=== PATIENT | female | born 1945 | race Caucasian/White ===

== ENCOUNTER → 2016-11-12 | Outpatient (REF) | payer MEDICARE, BC ==
[~2016-11-12] MED LIST: ASPI81TA85 PO; ATOR1TAB21 PO; CALTTAB5 PO; ESTR1TAB PO; FENO160T10 PO; GLIM2TA PO; JANU100T PO; LANTINJ4 SC; LISI20TA3 PO; METO25TAB PO; MULTTAB PO; OMEP40CA2 PO; VITA100037 PO; plaquenil PO
[2016-11-12 14:01] LABS: PERCENT SATURATION 14.6 % (13.2-37.4)
== END ==
LOC: M LAB REF 13:20
PROVIDERS: ATTEND Internal Medicine Nephrology
DX: D50.9 Iron deficiency anemia, unspecified (principal)

== ENCOUNTER 2017-05-14 12:19 | Emergency (ER) | payer MEDICARE, BC ==
[~2017-05-14] VITALS: Ht 154.9 cm; Wt 64.1 kg
[~2017-05-14 12:19] MED LIST changes: -VITA100037 PO; +VITA100067 PO
[2017-05-14] MEDS ORDERED: MORPHINE 2 MG/ML 1ML SYRINGE IV ONE (12:45)
[2017-05-14] MEDS ORDERED: PROMETHAZINE INJ 25 MG/ML VIAL (J2550) IV ONE (12:45)
[2017-05-14 13:03] LABS: BASO % 0.2 % (0.0-1.0); IMMATURE GRANULOCYTE % 0.5 % (0-0); LYMPH # 1.3 10^3/uL (1.5-4.5); LYMPH % 10.2 % (24.0-44.0); MEAN CORPUSCULAR HEMOGLOBIN 18.1 pg (27.0-33.0); MEAN CORPUSCULAR HGB CONC 30.5 g/dl (32.0-36.5); MONO # 0.4 10^3/uL (0.0-0.8); MONO % 3.1 % (0.0-5.0); NEUTROPHILS # 11.2 10^3/uL (1.8-7.7); PLATELET COUNT, AUTOMATED 280 10^3/uL (150-450); RED CELL DISTRIBUTION WIDTH 19.9 % (11.5-14.5); WHITE BLOOD COUNT 13.1 10^3/uL (4.0-10.0)
[2017-05-14 13:06] LABS: ADD MORPHOLOGY? NO; MEAN CORPUSCULAR VOLUME 59.4 fl (80.0-96.0); POSITIVE MORPH POS FLAG
[2017-05-14 13:17] LABS: CALCIUM LEVEL 9.5 MG/DL (8.8-10.2); CREATININE FOR GFR 1.1 MG/DL (0.55-1.02); GLOMERULAR FILTRATION RATE 52.3 (>39); POTASSIUM SERUM 4.2 MEQ/L (3.5-5.1)
[2017-05-14] MEDS ORDERED: ONGL1TAB9 PO (13:35)
[2017-05-14] MEDS ORDERED: METH2.5TA (13:35)
[2017-05-14] MEDS ORDERED: PRED10TA2 (13:35)
[2017-05-14] MEDS ORDERED: FURO20TA2 PO (13:35)
--- NOTE | 2017-05-14 13:35 | REP ---
CT BRAIN WITHOUT CONTRAST: CT brain performed without IV contrast and compared to prior study 06/04/2007. There is mild atrophy. There is no midline shift or mass effect. There are mild periventricular small vessel ischemic changes in the white matter which appear fairly similar to the prior study. There is no acute hemorrhage. There is no extra-axial fluid collection. No skull fracture is seen. Paranasal sinuses are clear. There are mild atherosclerotic calcifications in the carotid siphons. IMPRESSION: Mild atrophy and chronic periventricular small vessel ischemic changes. No acute intracranial hemorrhage or other acute finding. Signed by Cameron Cunningham MD 05/14/2017 02:39 P
[2017-05-14] MEDS ORDERED: BASA100I SC (14:19)
[2017-05-14] MEDS ORDERED: ENAL20TA PO (14:19)
[2017-05-14 14:48] VITALS: BP 137/78
--- NOTE | 2017-05-15 07:20 | ECGEPIP ---
Stationary ECG Study [facility] - ED Test Date: 2017-05-14 Pat Name: MATHIEU NORIEGA Department: Room: - Gender: F Family Therapist: AF : 1945 Requested By: CHLOE Ku Order Number: [id number] Reading MD: Betty Tadeo Measurements Intervals [place] Rate: 79 P: 7 LA: 180 QRS: -12 QRSD: 97 T: -10 QT: 384 QTc: 441 Interpretive Statements SINUS RHYTHM MODERATE VOLTAGE CRITERIA FOR LVH, CONSIDER NORMAL VARIANT NSTTW ABNORMALITY NO PRIOR FOR COMPARISON Electronically Signed On 05-15-2017 7:20:33 EDT by Betty Tadeo
== END 2017-05-14 15:10 | disposition home or self-care (01) ==
LOC: M ED 12:19
DX: I10 Essential (primary) hypertension (principal); E11.9 Type 2 diabetes mellitus without complications; M79.7 Fibromyalgia; M19.90 Unspecified osteoarthritis, unspecified site; K21.9 Gastro-esophageal reflux disease without esophagitis

== ENCOUNTER 2017-11-19 20:10 | Emergency (ER) | payer MEDICARE, BC ==
[2017-11-19] MEDS: diazePAM 5 MG TAB PO (21:48)
[2017-11-19] MEDS: NORCO, ANEXSIA 5/325MG TABLET (HYDROcodone/ACETAMINOPHEN) PO (22:56)
[2017-11-20] MEDS: NORCO 5/325MG TABLET (BULK FOR ED) PO
[2017-11-20] MEDS: diazePAM 5 MG TAB PO
== END 2017-11-20 00:02 | disposition home or self-care (01) ==
LOC: M ED 11-20 00:02
DX: M54.17 Radiculopathy, lumbosacral region (principal); M54.41 Lumbago with sciatica, right side; E10.9 Type 1 diabetes mellitus without complications; M79.7 Fibromyalgia; Z79.82 Long term (current) use of aspirin; Z79.4 Long term (current) use of insulin; Z79.899 Other long term (current) drug therapy; Z88.0 Allergy status to penicillin; Z88.5 Allergy status to narcotic agent
CPT/HCPCS: 93971

== ENCOUNTER → 2019-04-15 | Outpatient (CLI) | payer MEDICARE, BC ==
[~2019-04-15] MED LIST changes: +BASA100I SC; +ENAL20TA PO; +FURO20TA2 PO; -GLIM2TA PO; +GLIM2TAB29 PO; +LISI20TA20 PO; -LISI20TA3 PO; +METH2.5T48; +METO1TAB63 PO; -METO25TAB PO; +NORC1TAB7 PO; +ONGL1TAB9 PO; +PRED10TA2; +VALI5TAB PO
[2019-04-15 12:39] LABS: HEMATOCRIT 36.8 % (36.0-47.0); HEMOGLOBIN 11.4 g/dl (12.0-15.5); MEAN CORPUSCULAR VOLUME 64.4 fl (80.0-96.0); PLATELET COUNT, AUTOMATED 271 10^3/uL (150-450); RED BLOOD COUNT 5.71 10^6/uL (4.00-5.40); WHITE BLOOD COUNT 5.9 10^3/uL (4.0-10.0)
[2019-04-15 13:10] LABS: ALBUMIN 4.1 GM/DL (3.2-5.2); ALT/SGPT 13 U/L (12-78); BILIRUBIN,TOTAL 0.3 MG/DL (0.2-1.0); BLOOD UREA NITROGEN 16 MG/DL (7-18); CALCIUM LEVEL 9.6 MG/DL (8.8-10.2); CARBON DIOXIDE LEVEL 30 MEQ/L (21-32); CHLORIDE LEVEL 104 MEQ/L (98-107); CREATININE FOR GFR 0.86 MG/DL (0.55-1.30); GLOMERULAR FILTRATION RATE > 60.0 (>39); GLUCOSE, FASTING 74 MG/DL (70-100); SODIUM LEVEL 140 MEQ/L (136-145); TOTAL PROTEIN 7.3 GM/DL (6.4-8.2)
[2019-04-15 13:40] LABS: ERYTHROCYTE SEDIMENTATION RATE 18 mm/hr (0-30)
== END ==
LOC: M LAB 11:36
PROVIDERS: ATTEND Nurse Practitioner
DX: R10.84 Generalized abdominal pain (principal); R19.7 Diarrhea, unspecified; R19.5 Other fecal abnormalities; M25.552 Pain in left hip

== ENCOUNTER 2019-06-23 12:19 | Day surgery (SDC) | payer MEDICARE, BC ==
[~2019-06-23] VITALS: Ht 154.9 cm; Wt 64.0 kg
[~2019-06-23 12:19] MED LIST changes: +AMLO5TAB6 PO; +FAMO20TA PO; +METO25TA4 PO; +MULTCAP PO; +NS 1,000 ML IV ONE; -OMEP40CA2 PO; +OMEP40CA97 PO; +POTA10TA17 PO; +SULF50TA PO; +VITA200010 PO
[2019-06-23] MEDS ORDERED: PROPOFOL 200 MG/20 ML VIAL As Ordered ONE (12:27)
[2019-06-23] MEDS ORDERED: LIDOCAINE 2% INJ 100 MG/5 ML SDV (FOR ANES.) As Ordered ONE (12:27)
--- NOTE | 2019-06-23 13:27 | ROOR ---
Patient Name: Haleigh Kelly Procedure Date: 06/23/2019 12:56 PM Date of : 1945 Age: 73 Room: [facility] Gender: Female Note Status: Finalized Procedure: Colonoscopy Indications: Generalized abdominal pain Providers: Tao Ramirez Jr, MD Referring MD: ERNIE SANDOVAL Requesting Provider: Medicines: Propofol per Anesthesia Complications: No immediate complications. Procedure: Pre-Anesthesia Assessment: - Prior to the procedure, a History and Physical was performed, and patient medications and allergies were reviewed. The patient is competent. The risks and benefits of the procedure and the sedation options and risks were discussed with the patient. All questions were answered and informed consent was obtained. Patient identification and proposed procedure were verified by the physician and the nurse in the pre-procedure area and in the procedure room. Mental Status Examination: alert and oriented. Airway Examination: normal oropharyngeal airway and neck mobility. Respiratory Examination: clear to auscultation. CV Examination: normal. ASA Grade Assessment: II - A patient with mild systemic disease. After reviewing the risks and benefits, the patient was deemed in satisfactory condition to undergo the procedure. The anesthesia plan was to use moderate sedation / analgesia (conscious sedation). Immediately prior to administration of medications, the patient was re-assessed for adequacy to receive sedatives. The heart rate, respiratory rate, oxygen saturations, blood pressure, adequacy of pulmonary ventilation, and response to care were monitored throughout the procedure. The physical status of the patient was re-assessed after the procedure. The Colonoscope was introduced through the anus and advanced to the cecum, identified by appendiceal orifice and ileocecal valve. The colonoscopy was performed without difficulty. The patient tolerated the procedure well. The quality of the bowel preparation was adequate. Findings: The rectum, recto-sigmoid colon, descending colon, cecum, appendiceal orifice and ileocecal valve appeared normal. Many small and large-mouthed diverticula were found in the sigmoid colon. Two polyps were found in the transverse colon and ascending colon. The polyps were small in size. These polyps were removed with a hot snare. Resection and retrieval were complete. A medium polyp was found in the sigmoid colon. The polyp was sessile. The polyp was removed with a hot snare. Resection and retrieval were complete. To close a defect after polypectomy, two hemostatic clips were successfully placed. There was no bleeding at the end of the procedure. Impression: - The rectum, recto-sigmoid colon, descending colon, cecum, appendiceal orifice and ileocecal valve are normal. - Diverticulosis in the sigmoid colon. - Two small polyps in the transverse colon and in the ascending colon, removed with a hot snare. Resected and retrieved. - One medium polyp in the sigmoid colon, removed with a hot snare. Resected and retrieved. Clips were placed. Recommendation: - Discharge patient to home (ambulatory). - Repeat colonoscopy date to be determined after pending pathology results are reviewed for surveillance of multiple polyps. Tao Ramirez MD Tao Raimrez Jr, MD 06/23/2019 1:27:13 PM Electronically signed by Tao Ramirez Jr, MD Number of Addenda: 0 Note Initiated On: 06/23/2019 12:56 PM Estimated Blood Loss: Estimated blood loss: none.
[2019-06-23 14:15] VITALS: BP 152/63
== END 2019-06-23 14:20 | disposition home or self-care (01) ==
LOC: M OPP 12:19
PROVIDERS: ATTEND Surgery
DX: D12.3 Benign neoplasm of transverse colon (principal); D12.2 Benign neoplasm of ascending colon; D12.5 Benign neoplasm of sigmoid colon; K57.30 Diverticulosis of large intestine without perforation or abscess without bleeding; R10.84 Generalized abdominal pain; K59.00 Constipation, unspecified; I10 Essential (primary) hypertension; E78.00 Pure hypercholesterolemia, unspecified; E10.9 Type 1 diabetes mellitus without complications; K58.9 Irritable bowel syndrome, unspecified; K21.9 Gastro-esophageal reflux disease without esophagitis; D56.3 Thalassemia minor; M19.90 Unspecified osteoarthritis, unspecified site; M79.7 Fibromyalgia; G47.30 Sleep apnea, unspecified; Z88.0 Allergy status to penicillin; Z88.5 Allergy status to narcotic agent; Z79.899 Other long term (current) drug therapy; Z79.82 Long term (current) use of aspirin; Z79.890 Hormone replacement therapy

== ENCOUNTER 2020-05-24 16:29 | Emergency (ER) | payer MEDICARE, BC ==
[~2020-05-24] VITALS: Ht 154.9 cm; Wt 61.9 kg
[~2020-05-24 16:29] MED LIST changes: +AMLO1TAB24 PO; -AMLO5TAB6 PO; -ASPI81TA85 PO; +ASPI81TA86 PO; -ENAL20TA PO; +ENAL20TA11 PO; -NS 1,000 ML IV ONE; +SULF500T41 PO; -SULF50TA PO
[2020-05-24] MEDS ORDERED: MIRT1TAB16 (16:43)
[2020-05-24] MEDS ORDERED: amLODIPine 5 MG TAB PO ONE (18:00)
[2020-05-24] MEDS ORDERED: ENALAPRIL MALEATE 10 MG TAB PO ONE (18:00)
[2020-05-24] MEDS ORDERED: METOPROLOL TART 25 MG TABLET PO ONE (18:00)
[2020-05-24 18:30] LABS: BASO % 0.9 % (0.0-1.0); EOS % 0.2 % (0.0-3.0); HEMOGLOBIN 10.1 g/dl (12.0-15.5); LYMPH # 0.9 10^3/uL (1.5-5.0); LYMPH % 18.3 % (24.0-44.0); MEAN CORPUSCULAR HEMOGLOBIN 19.3 pg (27.0-33.0); MEAN CORPUSCULAR HGB CONC 29.7 g/dl (32.0-36.5); MONO # 0.2 10^3/uL (0.0-0.8); NEUTROPHILS # 3.5 10^3/uL (1.5-8.5); NEUTROPHILS % 75.2 % (36.0-66.0); PLATELET COUNT, AUTOMATED 217 10^3/uL (150-450); RED BLOOD COUNT 5.23 10^6/uL (4.00-5.40); WHITE BLOOD COUNT 4.6 10^3/uL (4.0-10.0)
[2020-05-24] MEDS ORDERED: ACETAMINOPHEN 325 MG TAB PO ONE (18:45)
[2020-05-24 18:50] LABS: ALBUMIN 4.3 GM/DL (3.2-5.2); BILIRUBIN,DIRECT 0.2 MG/DL (0.0-0.2); BILIRUBIN,TOTAL 0.5 MG/DL (0.2-1.0); TOTAL PROTEIN 7.1 GM/DL (6.4-8.2)
[2020-05-24 19:00] VITALS: BP 195/103
--- NOTE | 2020-05-25 10:04 | ECGEPIP ---
[facility] - ED Test Date: 2020-05-24 Pat Name: MATHIEU NORIEGA Department: Room: - Gender: Female Lead Customer Service Representative: maria r : 1945 Requested By: Betty Tadeo Order Number: [id number] Reading MD: Betty Tadeo Measurements Intervals [place] Rate: 82 P: 12 RI: 177 QRS: -8 QRSD: 86 T: -1 QT: 380 QTc: 445 Interpretive Statements SINUS RHYTHM NSTTW abnormalities SIMILAR 05/14/17 Electronically Signed on 05-25-2020 10:04:03 EST by Betty Tadeo
== END 2020-05-24 19:12 | disposition home or self-care (01) ==
LOC: M ED 16:29
DX: I10 Essential (primary) hypertension (principal); E11.9 Type 2 diabetes mellitus without complications; F33.9 Major depressive disorder, recurrent, unspecified; F41.9 Anxiety disorder, unspecified; E78.9 Disorder of lipoprotein metabolism, unspecified; G47.30 Sleep apnea, unspecified; Z88.0 Allergy status to penicillin; Z88.5 Allergy status to narcotic agent

== ENCOUNTER → 2020-07-28 | Outpatient (CLI) | payer MEDICARE, BC ==
[~2020-07-28] MED LIST changes: +MIRT1TAB16
== END ==
LOC: M LABSMTC 10:27
PROVIDERS: ATTEND Physician Assistant Medical
DX: Z20.822 Contact with and (suspected) exposure to COVID-19 (principal)

== ENCOUNTER → 2021-04-02 | Outpatient (CLI) | payer MEDICARE, BC ==
[~2021-04-02] MED LIST changes: +OMEP40CA4 PO; -OMEP40CA97 PO
--- NOTE | 2021-04-02 15:34 | REP ---
INDICATION: SPRAIN. COMPARISON: None. TECHNIQUE: Six views in total FINDINGS: There is no evidence of an acute fracture or destructive osseous lesion. Degenerative changes are seen involving the spine. IMPRESSION: No acute abnormality noted. <Electronically signed by Sunny Griffin > 04/02/21 2217
== END ==
LOC: M WUC 14:46
PROVIDERS: ATTEND Physician Assistant
DX: S23.41XA Sprain of ribs, initial encounter (principal); W18.30XA Fall on same level, unspecified, initial encounter; Y92.009 Unspecified place in unspecified non-institutional (private) residence as the place of occurrence of the external cause

== ENCOUNTER → 2022-07-22 | Outpatient (CLI) | payer MEDICARE, BC ==
[~2022-07-22] MED LIST changes: -LISI20TA20 PO; +LISI20TA37 PO; +POTA-150 PO; -POTA10TA17 PO
== END ==
LOC: M WHC 09:41
PROVIDERS: ATTEND Nurse Practitioner Family
DX: N18.31 Chronic kidney disease, stage 3a (principal)

== ENCOUNTER 2023-03-16 07:50 | Day surgery (SDC) | payer MEDICARE, BC ==
[~2023-03-16] VITALS: Ht 154.9 cm; Wt 59.4 kg
[~2023-03-16 07:50] MED LIST changes: +ACETYLCHOLINE OPHTH SOLN 1% 2ML (MIOCHOL-E) As Ordered ONE; +AIRB1CHW PO; +BAYE81TA10 PO; +CHOL4POW26 PO; +CYCLOPENTOLATE 1% OPHTH SOLN 2ML BTL OD SCH; +ENAL1TAB52 PO; -ENAL20TA11 PO; +FLUC200T4 PO; +FLURBIPROFEN 0.03% OPHTH SOLN 2.5 ML OD SCH; +LEFL10TA12 PO; +LEXA1TAB PO; +LIDOCAINE 1% MDV 50ML VIAL As Ordered ONE; +LIDOCAINE 1% SDV 5ML VIAL As Ordered ONE; +LISI10TA24 PO; +LR 1,000 ML IV SCH; +MEMA10TA19 PO; +METO1TAB7 PO; +PHENYLEPHRINE 2.5% OPHTH SOL 2ML OD SCH; +TETRACAINE 0.5% OPHTH SOLN 4ML OD SCH; +THERTAB52 PO
[2023-03-16] MEDS ORDERED: PROPARACAINE 0.5% OPHTH SOL 15ML As Ordered ONE (08:30)
[2023-03-16] MEDS ORDERED: MIDAZOLAM INJ 2MG/2ML VIAL As Ordered ONE (08:48)
[2023-03-16] MEDS ORDERED: LABETALOL 100MG/20ML VIAL As Ordered ONE (09:13)
[2023-03-16 09:29] VITALS: BP 186/83; TEMP 97.6; O2SAT 96
[2023-03-16] MEDS ORDERED: CEFUROXIME 1MG/0.1ML INTRACAMERAL INJ ICAM ONE (14:04)
== END 2023-03-16 09:57 | disposition home or self-care (01) ==
LOC: M SDC 07:50
PROVIDERS: ATTEND Ophthalmology
DX: H25.11 Age-related nuclear cataract, right eye (principal); I10 Essential (primary) hypertension; E78.5 Hyperlipidemia, unspecified; K58.9 Irritable bowel syndrome, unspecified; K21.9 Gastro-esophageal reflux disease without esophagitis; F03.90 Unspecified dementia, unspecified severity, without behavioral disturbance, psychotic disturbance, mood disturbance, and anxiety; M19.90 Unspecified osteoarthritis, unspecified site; F41.9 Anxiety disorder, unspecified; F32.A Depression, unspecified; G47.30 Sleep apnea, unspecified; Z88.5 Allergy status to narcotic agent; Z79.899 Other long term (current) drug therapy
CPT/HCPCS: 66984; J0697; J1920; J2250; V2632

== ENCOUNTER → 2023-09-07 | Outpatient (REF) | payer MEDICARE, BC ==
[~2023-09-07] MED LIST changes: -ACETYLCHOLINE OPHTH SOLN 1% 2ML (MIOCHOL-E) As Ordered ONE; -CYCLOPENTOLATE 1% OPHTH SOLN 2ML BTL OD SCH; -FLURBIPROFEN 0.03% OPHTH SOLN 2.5 ML OD SCH; -LIDOCAINE 1% MDV 50ML VIAL As Ordered ONE; -LIDOCAINE 1% SDV 5ML VIAL As Ordered ONE; -LR 1,000 ML IV SCH; -PHENYLEPHRINE 2.5% OPHTH SOL 2ML OD SCH; -TETRACAINE 0.5% OPHTH SOLN 4ML OD SCH
[2023-09-07 17:47] LABS: BASO # 0.1 10^3/uL (0.0-0.2); BASO % 1.4 % (0.0-1.0); EOS # 0.1 10^3/uL (0.0-0.5); EOS % 1.6 % (0.0-3.0); HEMATOCRIT 35.5 % (36.0-47.0); HEMOGLOBIN 10.6 g/dl (12.0-15.5); LDH LACTATE DEHYDROGENASE 244 U/L (120-246); LYMPH # 0.9 10^3/uL (1.5-5.0); MEAN CORPUSCULAR HEMOGLOBIN 19.2 pg (27.0-33.0); MEAN CORPUSCULAR HGB CONC 29.9 g/dl (32.0-36.5); MEAN CORPUSCULAR VOLUME 64.2 fl (80.0-96.0); MONO # 0.5 10^3/uL (0.0-0.8); MONO % 10.4 % (2.0-8.0); NEUTROPHILS # 2.9 10^3/uL (1.5-8.5); NEUTROPHILS % 66.4 % (36.0-66.0); PLATELET COUNT, AUTOMATED 248 10^3/uL (150-450); RED BLOOD COUNT 5.53 10^6/uL (4.00-5.40); WHITE BLOOD COUNT 4.4 10^3/uL (4.0-10.0)
[2023-09-07 17:48] LABS: RHEUMATOID FACTOR QUANT < 3.5 IU/ML (<14)
[2023-09-07 17:49] LABS: ALBUMIN 4.3 G/DL (3.2-5.2); ALKALINE PHOSPHATASE 76 U/L (46-116); ALT/SGPT 13 U/L (7.0-40); AST/SGOT 14 U/L (<34); BILIRUBIN,TOTAL 0.5 MG/DL (0.3-1.2); BLOOD UREA NITROGEN 16 MG/DL (9-23); CALCIUM LEVEL 9.3 MG/DL (8.3-10.6); CARBON DIOXIDE LEVEL 27 MMOL/L (20-31); CHLORIDE LEVEL 105 MMOL/L (98-107); CHOLESTEROL LEVEL 188 MG/DL (<200); CPK CREATINE PHOSPHOKINASE 57 U/L (34-145); CREATININE FOR GFR 0.85 MG/DL (0.55-1.30); GLOMERULAR FILTRATION RATE > 60.0 (>39); GLUCOSE, FASTING 129 MG/DL (74-106); PHOSPHORUS LEVEL 3.6 MG/DL (2.4-5.1); POTASSIUM SERUM 3.8 MMOL/L (3.5-5.1); SODIUM LEVEL 140 MMOL/L (136-145); TRIGLYCERIDES LEVEL 229 MG/DL (<150)
[2023-09-07 17:58] LABS: ERYTHROCYTE SEDIMENTATION RATE 35 mm/hr (0-30)
[2023-09-07 18:14] LABS: HEPATITIS B SURFACE ANTIBODY NEGATIVE (POSITIVE)
[2023-09-07 18:29] LABS: HEPATITIS C VIRUS ABY INDEX < 0.02 INDEX (<0.8)
== END ==
LOC: M LABDRAWC 17:05
PROVIDERS: ATTEND Internal Medicine Rheumatology
DX: Z11.59 Encounter for screening for other viral diseases (principal); Z72.89 Other problems related to lifestyle; M05.79 Rheumatoid arthritis with rheumatoid factor of multiple sites without organ or systems involvement; Z79.899 Other long term (current) drug therapy

== ENCOUNTER → 2024-02-11 | Outpatient (REF) | payer MEDICARE, BC ==
[~2024-02-11] MED LIST changes: +MEMA10TA PO; -MEMA10TA19 PO
[2024-02-11 18:48] LABS: HEMATOCRIT 32.1 % (36.0-47.0); HEMOGLOBIN 9.6 g/dl (12.0-15.5); MEAN CORPUSCULAR HEMOGLOBIN 19.6 pg (27.0-33.0); MEAN CORPUSCULAR HGB CONC 29.9 g/dl (32.0-36.5); MEAN CORPUSCULAR VOLUME 65.5 fl (80.0-96.0); PLATELET COUNT, AUTOMATED 236 10^3/uL (150-450); WHITE BLOOD COUNT 4.4 10^3/uL (4.0-10.0)
[2024-02-11 18:49] LABS: ALBUMIN 4.1 G/DL (3.2-5.2); ALKALINE PHOSPHATASE 67 U/L (46-116); ALT/SGPT 10 U/L (7.0-40); AST/SGOT 13 U/L (<34); BILIRUBIN,TOTAL 0.5 MG/DL (0.3-1.2); BLOOD UREA NITROGEN 16 MG/DL (9-23); CALCIUM LEVEL 9.5 MG/DL (8.3-10.6); CARBON DIOXIDE LEVEL 27 MMOL/L (20-31); CHLORIDE LEVEL 108 MMOL/L (98-107); CHOLESTEROL LEVEL 175 MG/DL (<200); CREATININE FOR GFR 0.89 MG/DL (0.55-1.30); GLOMERULAR FILTRATION RATE > 60.0 (>39); GLUCOSE, FASTING 150 MG/DL (74-106); HDL CHOLESTEROL 31.2 MG/DL (>40); LDL CHOLESTEROL 95.6 MG/DL (<100); NON-HDL-C 143.8 MG/DL; POTASSIUM SERUM 3.9 MMOL/L (3.5-5.1); SODIUM LEVEL 140 MMOL/L (136-145); TOTAL PROTEIN 6.4 G/DL (5.7-8.2); TRIGLYCERIDES LEVEL 241 MG/DL (<150)
[2024-02-11 19:17] LABS: HEMOGLOBIN A1c 5.1 % (4.0-6.0)
== END ==
LOC: M LABDRAWC 17:07
PROVIDERS: ATTEND Physician Assistant
DX: E78.2 Mixed hyperlipidemia (principal); I10 Essential (primary) hypertension; E11.9 Type 2 diabetes mellitus without complications

== ENCOUNTER → 2024-02-23 | Outpatient (REF) | payer MEDICARE, BC ==
[2024-02-23 15:03] LABS: BASO # 0.1 10^3/uL (0.0-0.2); BASO % 1.4 % (0.0-1.0); EOS # 0.1 10^3/uL (0.0-0.5); EOS % 3.1 % (0.0-3.0); HEMATOCRIT 32.6 % (36.0-47.0); HEMOGLOBIN 9.8 g/dl (12.0-15.5); LYMPH # 0.9 10^3/uL (1.5-5.0); LYMPH % 25.8 % (24.0-44.0); MEAN CORPUSCULAR HEMOGLOBIN 19.6 pg (27.0-33.0); MEAN CORPUSCULAR HGB CONC 30.1 g/dl (32.0-36.5); MEAN CORPUSCULAR VOLUME 65.1 fl (80.0-96.0); MONO # 0.4 10^3/uL (0.0-0.8); MONO % 12.2 % (2.0-8.0); NEUTROPHILS # 2.1 10^3/uL (1.5-8.5); NEUTROPHILS % 56.9 % (36.0-66.0); PLATELET COUNT, AUTOMATED 241 10^3/uL (150-450); RED BLOOD COUNT 5.01 10^6/uL (4.00-5.40); WHITE BLOOD COUNT 3.6 10^3/uL (4.0-10.0)
[2024-02-23 15:12] LABS: ERYTHROCYTE SEDIMENTATION RATE 26 mm/hr (0-30)
[2024-02-23 15:29] LABS: URIC ACID 4.7 MG/DL (3.1-7.8)
[2024-02-23 15:32] LABS: C REACTIVE PROTEIN QUANTITATIV < 0.40 MG/DL (<1.0)
[2024-02-23 15:33] LABS: RHEUMATOID FACTOR QUANT 5.8 IU/ML (<14)
[2024-02-23 15:34] LABS: ALBUMIN 4.1 G/DL (3.2-5.2); ALKALINE PHOSPHATASE 69 U/L (46-116); ALT/SGPT 21 U/L (7.0-40); AST/SGOT 23 U/L (<34); BILIRUBIN,TOTAL 0.5 MG/DL (0.3-1.2); BLOOD UREA NITROGEN 9 MG/DL (9-23); CALCIUM LEVEL 9.2 MG/DL (8.3-10.6); CARBON DIOXIDE LEVEL 27 MMOL/L (20-31); CHLORIDE LEVEL 105 MMOL/L (98-107); CREATININE FOR GFR 0.77 MG/DL (0.55-1.30); GLOMERULAR FILTRATION RATE > 60.0 (>39); GLUCOSE, FASTING 131 MG/DL (74-106); POTASSIUM SERUM 4.1 MMOL/L (3.5-5.1); SODIUM LEVEL 138 MMOL/L (136-145); TOTAL PROTEIN 6.6 G/DL (5.7-8.2)
[2024-02-25 12:32] LABS: ANA SCREEN, IFA NEGATIVE (NEGATIVE)
[2024-02-26 02:52] LABS: CYCLIC CITRULLINATED PEPTIDE < 16 UNITS (<20)
== END ==
LOC: M LABDRAWC 13:09
PROVIDERS: ATTEND Internal Medicine Rheumatology
DX: M05.79 Rheumatoid arthritis with rheumatoid factor of multiple sites without organ or systems involvement (principal); Z79.899 Other long term (current) drug therapy

== ENCOUNTER → 2024-05-10 | Outpatient (CLI) | payer MEDICARE, BC | LOC: M WHC 10:52 | PROVIDERS: ATTEND Physician Assistant | DX: Z12.31 Encounter for screening mammogram for malignant neoplasm of breast (principal); R92.323 Mammographic fibroglandular density, bilateral breasts ==

== ENCOUNTER → 2024-05-30 | Outpatient (REF) | payer MEDICARE, BC ==
[~2024-05-30] MED LIST changes: +FLUC-1 PO; -FLUC200T4 PO
[2024-05-30 19:07] LABS: BASO % 0.8 % (0.0-1.0); EOS # 0.1 10^3/uL (0.0-0.5); EOS % 2.1 % (0.0-3.0); HEMATOCRIT 31.7 % (36.0-47.0); HEMOGLOBIN 9.4 g/dl (12.0-15.5); LYMPH % 21.4 % (24.0-44.0); MEAN CORPUSCULAR HEMOGLOBIN 19.5 pg (27.0-33.0); MEAN CORPUSCULAR HGB CONC 29.7 g/dl (32.0-36.5); MEAN CORPUSCULAR VOLUME 65.8 fl (80.0-96.0); MONO # 0.6 10^3/uL (0.0-0.8); MONO % 11.8 % (2.0-8.0); NEUTROPHILS % 63.7 % (36.0-66.0); PLATELET COUNT, AUTOMATED 214 10^3/uL (150-450); RED BLOOD COUNT 4.82 10^6/uL (4.00-5.40); WHITE BLOOD COUNT 4.8 10^3/uL (4.0-10.0)
[2024-05-30 19:32] LABS: ERYTHROCYTE SEDIMENTATION RATE 29 mm/hr (0-30)
[2024-05-30 19:39] LABS: ALBUMIN 3.8 G/DL (3.2-5.2); ALKALINE PHOSPHATASE 69 U/L (35-104); ALT/SGPT 15 U/L (7.0-40); AST/SGOT 15 U/L (<34); BILIRUBIN,TOTAL 0.4 MG/DL (0.3-1.2); BLOOD UREA NITROGEN 8 MG/DL (9-23); CALCIUM LEVEL 9.5 MG/DL (8.3-10.6); CARBON DIOXIDE LEVEL 27 MMOL/L (20-31); CHLORIDE LEVEL 107 MMOL/L (98-107); CREATININE FOR GFR 0.72 MG/DL (0.55-1.30); GLOMERULAR FILTRATION RATE > 60.0 (>39); GLUCOSE, FASTING 175 MG/DL (74-106); SODIUM LEVEL 140 MMOL/L (136-145); TOTAL PROTEIN 6.7 G/DL (5.7-8.2)
== END ==
LOC: M LABDRAWC 17:32
PROVIDERS: ATTEND Internal Medicine Rheumatology
DX: M05.79 Rheumatoid arthritis with rheumatoid factor of multiple sites without organ or systems involvement (principal); Z79.899 Other long term (current) drug therapy

== ENCOUNTER → 2024-08-12 | Outpatient (REF) | payer MEDICARE, BC ==
[2024-08-12 13:52] LABS: CHOLESTEROL RISK RATIO 5.08 (<5); HDL CHOLESTEROL 35.2 MG/DL (>40); LDL CHOLESTEROL 102.6 MG/DL (<100); NON-HDL-C 143.8 MG/DL
[2024-08-12 14:18] LABS: HEMOGLOBIN A1c 5.8 % (4.0-6.0)
== END ==
LOC: M LABDRAWC 11:43
PROVIDERS: ATTEND Physician Assistant
DX: E78.2 Mixed hyperlipidemia (principal); E11.9 Type 2 diabetes mellitus without complications

== ENCOUNTER → 2025-01-18 | Outpatient (REF) ==
[2025-01-18 09:30] LABS: PLATELET COUNT, AUTOMATED 251 10^3/uL (150-450)
[2025-01-18 10:05] LABS: ALT/SGPT 11.0 U/L (7.0-40); AST/SGOT 21.0 U/L (<34); CALCIUM LEVEL 9.1 MG/DL (8.3-10.6); CARBON DIOXIDE LEVEL 26.0 MMOL/L (20-31); CHLORIDE LEVEL 104.0 MMOL/L (98-107); CREATININE FOR GFR 0.8 MG/DL (0.55-1.30); GLOMERULAR FILTRATION RATE 75.4 (>39); POTASSIUM SERUM 3.4 MMOL/L (3.5-5.1); SODIUM LEVEL 145.0 MMOL/L (136-145)
== END ==
PROVIDERS: ATTEND Physician Assistant
DX: I10 Essential (primary) hypertension (principal)

== ENCOUNTER → 2025-01-25 | Outpatient (REF) ==
[2025-01-25 09:14] LABS: PLATELET COUNT, AUTOMATED 245 10^3/uL (150-450)
[2025-01-25 09:38] LABS: CALCIUM LEVEL 9.3 MG/DL (8.3-10.6); CARBON DIOXIDE LEVEL 28.0 MMOL/L (20-31); CHLORIDE LEVEL 106.0 MMOL/L (98-107); CREATININE FOR GFR 0.73 MG/DL (0.55-1.30); GLOMERULAR FILTRATION RATE 84.1 (>39); POTASSIUM SERUM 3.3 MMOL/L (3.5-5.1); SODIUM LEVEL 145.0 MMOL/L (136-145)
== END ==
PROVIDERS: ATTEND Physician Assistant
DX: I10 Essential (primary) hypertension (principal)

== ENCOUNTER → 2025-01-31 | Outpatient (REF) | payer MEDICARE, BC ==
[2025-02-01 14:05] LABS: APPEARANCE, URINE CLOUDY (CLEAR); BACTERIA, URINE AUTO NEGATIVE (NEGATIVE); BILIRUBIN, URINE AUTO NEGATIVE (NEGATIVE); BLOOD, URINE BLOOD NEGATIVE (NEGATIVE); GLUCOSE, URINE (UA) AUTO NEGATIVE (NEGATIVE); KETONE, URINE AUTO NEGATIVE (NEGATIVE); LEUKOCYTE ESTERASE, URINE AUTO 2+ (NEGATIVE); MUCUS, URINE SMALL (NEGATIVE); NITRITE, URINE AUTO NEGATIVE (NEGATIVE); PROTEIN, URINE AUTO 1+ mg/dL (NEGATIVE); RBC, URINE AUTO 2 /HPF (0-3); SPECIFIC GRAVITY URINE AUTO 1.029 (1.002-1.035); SQUAMOUS EPITHELIAL CELL UR AU 9 /HPF (0-6); UROBILINOGEN, URINE AUTO 0.2 mg/dL (0.0-2.0); WBC, URINE AUTO 19 /HPF (0-3)
== END ==
PROVIDERS: ATTEND Nurse Practitioner Family
DX: R30.9 Painful micturition, unspecified (principal)

== ENCOUNTER → 2025-02-27 | Outpatient (REF) | payer MEDICARE, BC ==
[2025-02-27 11:06] LABS: PLATELET COUNT, AUTOMATED 274 10^3/uL (150-450)
[2025-02-27 11:32] LABS: CALCIUM LEVEL 9.0 MG/DL (8.3-10.6); CARBON DIOXIDE LEVEL 28.0 MMOL/L (20-31); CHLORIDE LEVEL 105.0 MMOL/L (98-107); CREATININE FOR GFR 0.87 MG/DL (0.55-1.30); GLOMERULAR FILTRATION RATE 68.2 (>39); POTASSIUM SERUM 3.3 MMOL/L (3.5-5.1); SODIUM LEVEL 145.0 MMOL/L (136-145)
== END ==
PROVIDERS: ATTEND Nurse Practitioner Family
DX: I10 Essential (primary) hypertension (principal)

== ENCOUNTER → 2025-03-03 | Outpatient (REF) | payer MEDICARE, BC ==
[2025-03-03 09:21] LABS: CALCIUM LEVEL 9.0 MG/DL (8.3-10.6); CARBON DIOXIDE LEVEL 30.0 MMOL/L (20-31); CHLORIDE LEVEL 107.0 MMOL/L (98-107); CREATININE FOR GFR 0.69 MG/DL (0.55-1.30); GLOMERULAR FILTRATION RATE 88.8 (>39); POTASSIUM SERUM 3.9 MMOL/L (3.5-5.1); SODIUM LEVEL 146.0 MMOL/L (136-145)
== END ==
PROVIDERS: ATTEND Nurse Practitioner Family
DX: E87.6 Hypokalemia (principal)

== ENCOUNTER → 2025-03-10 | Outpatient (REF) | payer MEDICARE, BC ==
[2025-03-10 09:55] LABS: CALCIUM LEVEL 9.5 MG/DL (8.3-10.6); CARBON DIOXIDE LEVEL 26.0 MMOL/L (20-31); CHLORIDE LEVEL 105.0 MMOL/L (98-107); CREATININE FOR GFR 0.78 MG/DL (0.55-1.30); GLOMERULAR FILTRATION RATE 77.7 (>39); POTASSIUM SERUM 3.9 MMOL/L (3.5-5.1); SODIUM LEVEL 144.0 MMOL/L (136-145)
== END ==
PROVIDERS: ATTEND Nurse Practitioner Family
DX: E87.6 Hypokalemia (principal)

== ENCOUNTER → 2025-03-29 | Outpatient (REF) | payer MEDICARE, BC ==
[2025-03-29 12:07] LABS: PLATELET COUNT, AUTOMATED 461 10^3/uL (150-450)
[2025-03-29 12:29] LABS: CALCIUM LEVEL 8.5 MG/DL (8.3-10.6); CARBON DIOXIDE LEVEL 28 MMOL/L (20-31); CHLORIDE LEVEL 105 MMOL/L (98-107); CREATININE FOR GFR 0.65 MG/DL (0.55-1.30); GLOMERULAR FILTRATION RATE > 90.0 (>39); POTASSIUM SERUM 4.3 MMOL/L (3.5-5.1); SODIUM LEVEL 144 MMOL/L (136-145)
== END ==
PROVIDERS: ATTEND Physician Assistant
DX: I10 Essential (primary) hypertension (principal)

== ENCOUNTER → 2025-03-30 | Outpatient (REF) | payer MEDICARE, BC ==
[2025-03-30 13:36] LABS: APPEARANCE, URINE CLEAR (CLEAR); BACTERIA, URINE AUTO 1+ (NEGATIVE); BILIRUBIN, URINE AUTO NEGATIVE (NEGATIVE); BLOOD, URINE BLOOD NEGATIVE (NEGATIVE); GLUCOSE, URINE (UA) AUTO NEGATIVE (NEGATIVE); KETONE, URINE AUTO NEGATIVE (NEGATIVE); LEUKOCYTE ESTERASE, URINE AUTO 1+ (NEGATIVE); MUCUS, URINE SMALL (NEGATIVE); NITRITE, URINE AUTO NEGATIVE (NEGATIVE); PROTEIN, URINE AUTO NEGATIVE (NEGATIVE); RBC, URINE AUTO 2 /HPF (0-3); SPECIFIC GRAVITY URINE AUTO 1.013 (1.002-1.035); SQUAMOUS EPITHELIAL CELL UR AU 2 /HPF (0-6); UROBILINOGEN, URINE AUTO 0.2 mg/dL (0.0-2.0); WBC, URINE AUTO 30 /HPF (0-3)
== END ==
PROVIDERS: ATTEND Nurse Practitioner Family
DX: D72.829 Elevated white blood cell count, unspecified (principal); Z79.899 Other long term (current) drug therapy

== ENCOUNTER → 2025-04-03 | Outpatient (REF) | payer MEDICARE, BC ==
[2025-04-03 11:10] LABS: PLATELET COUNT, AUTOMATED 230 10^3/uL (150-450)
[2025-04-03 11:31] LABS: CALCIUM LEVEL 8.6 MG/DL (8.3-10.6); CARBON DIOXIDE LEVEL 26.0 MMOL/L (20-31); CHLORIDE LEVEL 105.0 MMOL/L (98-107); CREATININE FOR GFR 0.76 MG/DL (0.55-1.30); GLOMERULAR FILTRATION RATE 80.2 (>39); POTASSIUM SERUM 3.8 MMOL/L (3.5-5.1); SODIUM LEVEL 140.0 MMOL/L (136-145)
== END ==
PROVIDERS: ATTEND Nurse Practitioner Family
DX: D72.829 Elevated white blood cell count, unspecified (principal)

== ENCOUNTER → 2025-04-07 | Outpatient (REF) | payer BC, MEDICARE | PROVIDERS: ATTEND Physician Assistant | DX: R10.11 Right upper quadrant pain (principal); K58.9 Irritable bowel syndrome, unspecified ==

== ENCOUNTER → 2025-04-10 | Outpatient (REF) | payer MEDICARE, BC ==
[2025-04-10 12:58] LABS: PLATELET COUNT, AUTOMATED 268 10^3/uL (150-450)
[2025-04-10 13:14] LABS: ALT/SGPT 10.0 U/L (7.0-40); AST/SGOT 18.0 U/L (<34); CALCIUM LEVEL 9.1 MG/DL (8.3-10.6); CARBON DIOXIDE LEVEL 27.0 MMOL/L (20-31); CHLORIDE LEVEL 104.0 MMOL/L (98-107); CREATININE FOR GFR 0.84 MG/DL (0.55-1.30); GLOMERULAR FILTRATION RATE 71.1 (>39); POTASSIUM SERUM 4.4 MMOL/L (3.5-5.1); SODIUM LEVEL 141.0 MMOL/L (136-145)
== END ==
PROVIDERS: ATTEND Nurse Practitioner Family
DX: R10.11 Right upper quadrant pain (principal)

== ENCOUNTER → 2025-04-20 | Outpatient (CLI) | payer MEDICARE, MEDICAID | LOC: M RAD 08:44 | PROVIDERS: ATTEND Nurse Practitioner Family | DX: R10.11 Right upper quadrant pain (principal); R93.2 Abnormal findings on diagnostic imaging of liver and biliary tract; Z90.49 Acquired absence of other specified parts of digestive tract ==

== ENCOUNTER → 2025-04-30 | Outpatient (REF) | payer MEDICARE, MEDICAID ==
[2025-04-30 19:48] LABS: APPEARANCE, URINE HAZY (CLEAR); BACTERIA, URINE AUTO 1+ (NEGATIVE); BILIRUBIN, URINE AUTO NEGATIVE (NEGATIVE); BLOOD, URINE BLOOD NEGATIVE (NEGATIVE); GLUCOSE, URINE (UA) AUTO NEGATIVE (NEGATIVE); KETONE, URINE AUTO NEGATIVE (NEGATIVE); LEUKOCYTE ESTERASE, URINE AUTO 2+ (NEGATIVE); MUCUS, URINE SMALL (NEGATIVE); NITRITE, URINE AUTO NEGATIVE (NEGATIVE); PROTEIN, URINE AUTO NEGATIVE (NEGATIVE); RBC, URINE AUTO 2 /HPF (0-3); SPECIFIC GRAVITY URINE AUTO 1.026 (1.002-1.035); SQUAMOUS EPITHELIAL CELL UR AU 12 /HPF (0-6); UROBILINOGEN, URINE AUTO 0.2 mg/dL (0.0-2.0); WBC, URINE AUTO 18 /HPF (0-3)
== END ==
LOC: M LAB REF 19:26
PROVIDERS: ATTEND Internal Medicine
DX: R30.0 Dysuria (principal)

== ENCOUNTER → 2025-05-01 | Outpatient (REF) | payer MEDICARE, MEDICAID ==
[2025-05-01 13:05] LABS: PLATELET COUNT, AUTOMATED 277 10^3/uL (150-450)
[2025-05-01 13:40] LABS: ALT/SGPT 14.0 U/L (7.0-40); AST/SGOT 17.0 U/L (<34); CALCIUM LEVEL 9.1 MG/DL (8.3-10.6); CARBON DIOXIDE LEVEL 26.0 MMOL/L (20-31); CHLORIDE LEVEL 105.0 MMOL/L (98-107); CREATININE FOR GFR 0.79 MG/DL (0.55-1.30); GLOMERULAR FILTRATION RATE 76.5 (>39); POTASSIUM SERUM 4.1 MMOL/L (3.5-5.1); SODIUM LEVEL 143.0 MMOL/L (136-145)
[2025-05-01 14:01] LABS: ESTIMATED AVERAGE GLUCOSE 120.0 MG/DL (60-110)
== END ==
PROVIDERS: ATTEND Nurse Practitioner Family
DX: I10 Essential (primary) hypertension (principal); E78.49 Other hyperlipidemia; E78.6 Lipoprotein deficiency; Z79.899 Other long term (current) drug therapy

== ENCOUNTER → 2025-05-05 | Outpatient (CLI) | payer MEDICARE, MEDICAID ==
[~2025-05-05] MED LIST changes: +ISOVUE-370 76% 100 ML VIAL As Ordered ONE
== END ==
LOC: M RAD 09:19
PROVIDERS: ATTEND Nurse Practitioner Family
DX: R10.11 Right upper quadrant pain (principal)
CPT/HCPCS: 74170; Q9967

== ENCOUNTER → 2025-05-08 | Outpatient (REF) | payer MEDICARE, MEDICAID ==
[~2025-05-08] MED LIST changes: -ISOVUE-370 76% 100 ML VIAL As Ordered ONE
[2025-05-08 15:13] LABS: HEPATITIS C VIRUS ABY INDEX < 0.02 INDEX (<0.8)
== END ==
PROVIDERS: ATTEND Nurse Practitioner Family
DX: R10.11 Right upper quadrant pain (principal); R93.2 Abnormal findings on diagnostic imaging of liver and biliary tract

== ENCOUNTER 2025-06-05 21:50 | Emergency (ER) | payer MEDICARE, MEDICAID ==
[2025-06-05 22:38] LABS: BASO # 0.1 10^3/uL (0.0-0.2); BASO % 1.0 % (0.0-1.0); EOS # 0.0 10^3/uL (0.0-0.5); EOS % 0.2 % (0.0-3.0); LYMPH # 1.7 10^3/uL (1.5-5.0); LYMPH % 27.5 % (24.0-44.0); MONO # 0.7 10^3/uL (0.0-0.8); MONO % 11.2 % (2.0-8.0); NEUTROPHILS # 3.6 10^3/uL (1.5-8.5); NEUTROPHILS % 59.9 % (36.0-66.0); PLATELET COUNT, AUTOMATED 249 10^3/uL (150-450)
[2025-06-05 22:57] LABS: CALCIUM LEVEL 9.1 MG/DL (8.3-10.6); CARBON DIOXIDE LEVEL 25.0 MMOL/L (20-31); CHLORIDE LEVEL 104.0 MMOL/L (98-107); CK-MB VALUE MASS 1.6 NG/ML (<3.6); CPK CREATINE PHOSPHOKINASE 38.0 U/L (34-145); CREATININE FOR GFR 0.73 MG/DL (0.55-1.30); GLOMERULAR FILTRATION RATE 84.1 (>39); MB/CK RELATIVE INDEX 4.21 (< OR =4); POTASSIUM SERUM 4.1 MMOL/L (3.5-5.1); SODIUM LEVEL 140.0 MMOL/L (136-145)
[2025-06-06 00:04] LABS: CK-MB VALUE MASS 2.1 NG/ML (<3.6)
[2025-06-06 00:11] LABS: CPK CREATINE PHOSPHOKINASE 37.0 U/L (34-145); MB/CK RELATIVE INDEX 5.67 (< OR =4)
[2025-06-06 01:55] LABS: KETONE, URINE AUTO RFX NEGATIVE (NEGATIVE); LEUKOCYTE ESTERASE UR AUTO RFX NEGATIVE (NEGATIVE); NITRITE, URINE AUTO RFX NEGATIVE (NEGATIVE); RBC, URINE AUTO RFX 0 /HPF (0-3); SQUAM EPITHELIAL CELL UR AURFX 1 /HPF (0-6); WBC, URINE AUTO RFX 2 /HPF (0-3)
[2025-06-06] MEDS: KETOROLAC 30 MG/ML 1 ML VIAL IV ONE (02:16)
[2025-06-06 04:18] VITALS: BP 183/87; TEMP 98.1; O2SAT 96
== END 2025-06-06 04:23 | disposition home or self-care (01) ==
LOC: M ED 21:50
DX: R07.82 Intercostal pain (principal); I44.7 Left bundle-branch block, unspecified; E11.9 Type 2 diabetes mellitus without complications; K76.0 Fatty (change of) liver, not elsewhere classified; Z88.0 Allergy status to penicillin; Z88.1 Allergy status to other antibiotic agents; Z88.5 Allergy status to narcotic agent; Z88.6 Allergy status to analgesic agent; Z79.1 Long term (current) use of non-steroidal anti-inflammatories (NSAID); Z79.899 Other long term (current) drug therapy; Z79.810 Long term (current) use of selective estrogen receptor modulators (SERMs)
CPT/HCPCS: 71045; 80048; 81001; 82550; 82553; 84484; 85025; 93005; 93041; 94760; 96374; 99285; J1885

== ENCOUNTER → 2025-06-26 | Outpatient (REF) | payer MEDICARE, MEDICAID ==
[2025-06-26 10:29] LABS: PLATELET COUNT, AUTOMATED 254 10^3/uL (150-450)
[2025-06-26 10:53] LABS: CALCIUM LEVEL 8.9 MG/DL (8.3-10.6); CARBON DIOXIDE LEVEL 26.0 MMOL/L (20-31); CHLORIDE LEVEL 104.0 MMOL/L (98-107); CREATININE FOR GFR 0.82 MG/DL (0.55-1.30); GLOMERULAR FILTRATION RATE 73.2 (>39); POTASSIUM SERUM 4.1 MMOL/L (3.5-5.1); SODIUM LEVEL 142.0 MMOL/L (136-145)
== END ==
PROVIDERS: ATTEND Nurse Practitioner Family
DX: I10 Essential (primary) hypertension (principal)